=== PATIENT | female | born 2000 | race Hispanic/Latino ===

== ENCOUNTER 2024-10-06 18:35 | Emergency (ER) | payer OTHER ==
[~2024-10-06] VITALS: Ht 160 cm; Wt 68.0 kg
[2024-10-06 19:45] VITALS: TEMP 98.4
[2024-10-06 20:22] LABS: BASOPHILS % 0.2 % (0.0-1.0); EOSINOPHILS % 0.2 % (0.0-6.0); HEMOGLOBIN 13.3 g/dL (12.0-16.0); LYMPHOCYTES # (AUTO) 1.9 (1.0-3.2); LYMPHOCYTES % 10.8 % (18.0-39.1); MEAN CORPUSCULAR HEMOGLOBIN 29.6 pg (28-32); MEAN CORPUSCULAR HGB CONC 34.1 g/dL (31-35); MEAN CORPUSCULAR VOLUME 86.9 fL (81-99); MONOCYTES # (AUTO) 0.7 (0.2-0.8); MONOCYTES % 4.2 % (4.4-11.3); NEUTROPHILS # (AUTO) 14.7 (2.1-6.9); NEUTROPHILS % 84.1 % (38.7-80.0); PLATELET COUNT 329 x10e3/uL (140-360); RED BLOOD COUNT 4.49 x10e6/uL (3.6-5.1); RED CELL DISTRIBUTION WIDTH 12.8 % (11.7-14.4); WHITE BLOOD COUNT 17.47 x10e3/uL (4.8-10.8)
[2024-10-06] MEDS: Morphine 4mg INJECTION 4 MG/ML INJ IV STA (20:42)
[2024-10-06] MEDS: SODIUM CHLORIDE 0.9% 1000ML 1,000 ML IV STA (20:42)
[2024-10-06 20:44] LABS: ALBUMIN 4.7 g/dL (3.5-5.0); ALBUMIN/GLOBULIN RATIO 1.3 (0.8-2.0); ANION GAP 18.7 mmol/L (8-16); BILIRUBIN,TOTAL 0.7 mg/dL (0.2-1.2); CALCIUM 9.8 mg/dL (8.4-10.2); CREATININE, SERUM 0.66 mg/dL (0.57-1.11); POTASSIUM 4.7 mmol/L (3.5-5.1); TOTAL PROTEIN 8.3 g/dL (6.5-8.1)
[2024-10-06 20:47] LABS: PREGNANCY TEST, URINE POSITIVE (NEGATIVE)
[2024-10-06 20:49] LABS: CLARITY,URINE SL CLOUDY (CLEAR); COLOR,URINE YELLOW (YELLOW); LEUKOCYTE ESTERASE ,URINE NEGATIVE (NEGATIVE); PH,URINE 6 (5 - 7)
[2024-10-06 20:50] LABS: BILIRUBIN,URINE 1+ (NEGATIVE); GLUCOSE, URINE NEGATIVE (NEGATIVE); KETONES,URINE >=160 (NEGATIVE); NITRITE,URINE NEGATIVE (NEGATIVE); PROTEIN,URINE DIPSTICK 1+ (NEGATIVE); URINE UROBILINOGEN 0.2 mg/dL (0.2 - 1)
[2024-10-06] MEDS ORDERED: ONDANSETRON HCL INJ 2MG/ML 2ML 2 MG/ML VIAL ONE (20:56)
[2024-10-06 21:05] LABS: BACTERIA,URINE MANY /HPF; EPITHELIAL CELLS,URINE MANY /LPF; MUCUS,URINE MANY; TRANSITIONAL EPI CELLS,URINE FEW
[2024-10-06] MEDS: ONDANSETRON HCL INJ 2MG/ML 2ML 2 MG/ML VIAL IV STA (21:12)
[2024-10-07 01:00] VITALS: PULSE 62; RESP 18
[2024-10-07] MEDS ORDERED: AMOXICILLIN500 MG PO (02:50)
[2024-10-07 03:34] VITALS: BP 101/62; O2SAT 98
== END 2024-10-07 03:35 | disposition home or self-care (01) ==
LOC: ER 18:45
DX: O23.41 Unspecified infection of urinary tract in pregnancy, first trimester (principal); N39.0 Urinary tract infection, site not specified; R10.12 Left upper quadrant pain
CPT/HCPCS: 36415; 76801; 80053; 81001; 81025; 83690; 84702; 85025; 99284; J2270; J2405; J7030